=== PATIENT | male | born 1940 | race Caucasian/White ===

== ENCOUNTER 2018-05-29 18:07 | Observation (INO) ==
[2018-05-29 19:18] LABS: Basophils # 0.1 10*3/uL (0.0-0.2); Basophils % 0.8 % (0.0-0.8); Eosinophils # 0.1 10*3/uL (0.0-0.87); Eosinophils % 1.8 % (0.00-10.9); Hematocrit 41.8 VOL% (42.0-52.0); Hemoglobin 14.7 GM/DL (14.0-18.0); Immature Granulocytes % 0.4 %; Immature Granulocytes Absolute 0.03 #; Lymphocytes # 1.5 10*3/uL (1.4-4.0); Lymphocytes % 19.3 % (21.2-54.2); Mean Corpuscular HGB Conc 35.2 GM/DL (32-36); Mean Corpuscular Hemoglobin 32 PG (27-34); Mean Corpuscular Volume 89.7 FL (87-102); Mean Platelet Volume 10.2 FL (9.6-12.0); Monocytes # 0.7 10*3/uL (0.11-0.8); Monocytes % 8.6 % (1.7-12.7); Neutrophils # 5.5 10*3/uL (1.4-7.4); Neutrophils % 69.1 % (38.7-73.9); Platelet Count 244 T/CUMM (130-400); Red Blood Count 4.66 MC/CUMM (3.8-5.5); Red Cell Distribution Width 12.6 % (9.3-17.3); White Blood Count 7.9 T/CUMM (4-12)
[2018-05-29 19:24] LABS: INR 0.9; PT Patient Result 9.6 SECS
[2018-05-29 19:32] LABS: Alanine Aminotransferase 25 U/L (16-61); Albumin 3.7 G/DL (3.4-5.0); Alkaline Phosphatase 85 U/L (45-117); Aspartate Amino Transferase 29 U/L (0-37); Bilirubin,Total < 0.39 MG/DL (0.2-1.0); Blood Urea Nitrogen 15 MG/DL (7-18); Calcium 9.5 MG/DL (8.5-10.1); Glucose 104 MG/DL (74-106); Osmolality,Calculated 277.5 MOS/KG (273-304); Potassium 3.6 MMOL/L (3.5-5.1); Sodium 139 MMOL/L (136-145); Total Protein 7.6 G/DL (6.4-8.3)
[2018-05-29 23:50] LABS: Troponin I Only < 0.015 NG/ML (0.00-0.045)
[2018-05-30 16:05] VITALS: BP 167/74
== END 2018-05-30 18:37 | disposition home or self-care (01) ==
LOC: N.EDINP 18:07 → N.ED 18:07 → N.TELES 22:04
PROVIDERS: ADMIT Internal Medicine; ATTEND Internal Medicine

== ENCOUNTER 2020-09-01 10:37 | Inpatient (IN) ==
[2020-09-01 11:19] LABS: Basophils # 0.1 10*3/uL (0.0-0.2); Basophils % 0.8 % (0.0-0.8); Eosinophils # 0.7 10*3/uL (0.0-0.87); Eosinophils % 8.1 % (0.00-10.9); Hematocrit 42.7 VOL% (42.0-52.0); Hemoglobin 14.2 GM/DL (14.0-18.0); Immature Granulocytes % 2.3 %; Immature Granulocytes Absolute 0.19 #; Lymphocytes # 2.1 10*3/uL (1.4-4.0); Lymphocytes % 24.5 % (21.2-54.2); Mean Corpuscular HGB Conc 33.3 GM/DL (32-36); Mean Corpuscular Volume 93.8 FL (87-102); Mean Platelet Volume 8.5 FL (9.6-12.0); Neutrophils % 50.3 % (38.7-73.9); Platelet Count 514 T/CUMM (130-400); Red Blood Count 4.55 MC/CUMM (3.8-5.5); Red Cell Distribution Width 14.6 % (9.3-17.3); White Blood Count 8.4 T/CUMM (4-12)
[2020-09-01 11:26] LABS: Bilirubin,Urine Negative (Negative); Blood, Urine Negative (Negative); Calcium Oxalate Crystals,Urine Moderate /HPF (Few); Glucose,Urine (UA) Negative (Negative); Hyaline Casts,Urine 7 /LPF (0-3); Ketones,Urine 5 mg/dL (Negative); Mucus,Urine Occasional /LPF (Occasional); Nitrite,Urine Negative (Negative); Protein,Urine 30 MG/DL; RBC,Urine 1 /HPF (0-4); Squamous Epithelial Cell,Urine Occasional /HPF (0-10); Urine Appearance Slightly Hazy (Clear); Urine Color Amber (Yellow); Urine Specific Gravity 1.038 (1.001-1.035); WBC,Urine 1 /HPF (0-6)
[2020-09-01 11:51] LABS: Calcium 8.8 MG/DL (8.5-10.1); Ferritin 194.9 ng/ml (26-388); Osmolality,Calculated 270.2 MOS/KG (273-304)
[2020-09-01] MEDS ORDERED: GLUCAGON 1 MG VIAL IM PRN (16:04)
[2020-09-01] MEDS ORDERED: PROMETHAZINE 25 MG/1 ML VIAL IM PRN (16:04)
[2020-09-01] MEDS ORDERED: ONDANSETRON 4 MG/2 ML VIAL IV PRN (16:04)
[2020-09-01] MEDS ORDERED: DEXTROSE 50% 25 GM/50 ML VIAL IV PRN (16:04)
[2020-09-01] MEDS ORDERED: BISACODYL 5 MG TABLET PO PRN (16:04)
[2020-09-01] MEDS ORDERED: NITROGLYCERIN SL 0.4 MG TABLET SL PRN (16:09)
[2020-09-01] MEDS ORDERED: MELOXICAM 7.5 MG TABLET PO PRN (16:09)
[2020-09-01] MEDS ORDERED: SODIUM CHLORIDE 0.9% 500 ML IV ONE (16:10)
[2020-09-01] MEDS: CEFEPIME 1,000 MG in SODIUM CHLORIDE 0.9% 100 ML IV SCH ×2 (17:07→23:10)
[2020-09-01] MEDS: THEOPHYLLINE ER (24 HR) 400 MG CAPSULE PO SCH (17:08)
[2020-09-01] MEDS: LACTATED RINGERS 1,000 ML IV SCH (17:59)
[2020-09-01] MEDS: VANCOMYCIN INJ 1,250 MG in SODIUM CHLORIDE 0.9% 250 ML IV SCH (18:00)
[2020-09-01] MEDS: ALBUTEROL/IPRATROPIUM 3 ML NEB RESP TX SCH (19:11)
[2020-09-01] MEDS: SOTALOL 80 MG TABLET PO SCH (20:50)
[2020-09-01] MEDS: APIXABAN 2.5 MG TABLET PO SCH (20:50)
[2020-09-01] MEDS: TICAGRELOR 90 MG TABLET PO SCH (20:51)
[2020-09-01] MEDS: ASCORBIC ACID 500 MG TABLET PO SCH (20:52)
[2020-09-01] MEDS: MIRTAZAPINE 15 MG TABLET PO SCH (20:52)
[2020-09-01] MEDS: traZODone 50 MG TABLET PO PRN (20:53)
[2020-09-01] MEDS: SIMVASTATIN 20 MG TABLET PO SCH (20:56)
[2020-09-01] MEDS ORDERED: ZINC SULFATE 220 MG CAPSULE PO SCH (21:00)
[2020-09-02] MEDS: ALBUTEROL/IPRATROPIUM 3 ML NEB RESP TX SCH ×4 (00:20→19:01)
[2020-09-02] MEDS: ACETAMINOPHEN 325 MG TABLET PO PRN ×2 (00:52→11:05)
[2020-09-02 04:09] LABS: Basophils # 0.1 10*3/uL (0.0-0.2)
[2020-09-02 04:22] LABS: Eosinophils # 0.5 10*3/uL (0.0-0.87); Eosinophils % 7.8 % (0.00-10.9); Hematocrit 34.2 VOL% (42.0-52.0); Immature Granulocytes % 1.6 %; Immature Granulocytes Absolute 0.11 #; Lymphocytes # 1.9 10*3/uL (1.4-4.0); Lymphocytes % 28.3 % (21.2-54.2); Mean Corpuscular HGB Conc 33.9 GM/DL (32-36); Mean Corpuscular Volume 92.7 FL (87-102); Monocytes % 14.2 % (1.7-12.7); Neutrophils % 47.1 % (38.7-73.9); Platelet Count 402 T/CUMM (130-400); Red Blood Count 3.69 MC/CUMM (3.8-5.5); Red Cell Distribution Width 14.5 % (9.3-17.3); White Blood Count 6.8 T/CUMM (4-12)
[2020-09-02 04:23] LABS: Hemoglobin 11.6 GM/DL (14.0-18.0)
[2020-09-02 04:36] LABS: Calcium 8.3 MG/DL (8.5-10.1)
[2020-09-02 04:41] LABS: Risk Ratio 3.79; VLDL CHOLESTEROL 12.2 MG/DL
[2020-09-02] MEDS: CEFEPIME 1,000 MG in SODIUM CHLORIDE 0.9% 100 ML IV SCH (05:23)
[2020-09-02] MEDS: LACTATED RINGERS 1,000 ML IV SCH (05:24)
[2020-09-02 05:43] LABS: Eosinophils 9 % (0-10); Hypochromasia 1+; Lymphocytes 23 % (20-55); Microcytosis 1+; Platelet Estimate Adequate; Segmented Neutrophils 57 % (50-85); Total Cells Counted 100
[2020-09-02] MEDS ORDERED: KETOROLAC 30 MG/1 ML VIAL IV ONE (08:56)
[2020-09-02] MEDS ORDERED: AZITHROMYCIN 250 MG TABLET PO ONE (08:57)
[2020-09-02] MEDS: methylPREDNISolone SOD SUC 40 MG/1 ML VIAL IV SCH ×2 (10:25→21:36)
[2020-09-02] MEDS: SOTALOL 80 MG TABLET PO SCH ×2 (10:25→21:34)
[2020-09-02] MEDS: ASPIRIN EC 81 MG TABLET PO SCH (10:26)
[2020-09-02] MEDS: ASCORBIC ACID 500 MG TABLET PO SCH ×2 (10:26→21:34)
[2020-09-02] MEDS: TICAGRELOR 90 MG TABLET PO SCH ×2 (10:26→21:34)
[2020-09-02] MEDS: PANTOPRAZOLE 40 MG TABLET PO SCH (10:27)
[2020-09-02] MEDS: APIXABAN 2.5 MG TABLET PO SCH ×2 (10:27→21:34)
[2020-09-02] MEDS: ZINC SULFATE 220 MG CAPSULE PO SCH (10:27)
[2020-09-02] MEDS: CEFEPIME 2,000 MG in SODIUM CHLORIDE 0.9% 100 ML IV SCH ×2 (13:10→21:35)
[2020-09-02] MEDS: VANCOMYCIN INJ 1,250 MG in SODIUM CHLORIDE 0.9% 250 ML IV SCH (15:05)
[2020-09-02] MEDS: THEOPHYLLINE ER (24 HR) 400 MG CAPSULE PO SCH (17:42)
[2020-09-02] MEDS ORDERED: LOSARTAN 50 MG TABLET PO SCH (21:00)
[2020-09-02] MEDS: MIRTAZAPINE 15 MG TABLET PO SCH (21:34)
[2020-09-02] MEDS: traZODone 50 MG TABLET PO PRN (21:34)
[2020-09-02] MEDS: SIMVASTATIN 20 MG TABLET PO SCH (21:35)
[2020-09-03] MEDS: ALBUTEROL/IPRATROPIUM 3 ML NEB RESP TX SCH ×3 (00:03→14:09)
[2020-09-03] MEDS: CEFEPIME 2,000 MG in SODIUM CHLORIDE 0.9% 100 ML IV SCH ×2 (03:51→12:58)
[2020-09-03] MEDS: methylPREDNISolone SOD SUC 40 MG/1 ML VIAL IV SCH ×2 (04:27→12:58)
[2020-09-03] MEDS: VANCOMYCIN INJ 1,250 MG in SODIUM CHLORIDE 0.9% 250 ML IV SCH (06:09)
[2020-09-03 06:34] LABS: Basophils % 0.3 % (0.0-0.8); Hemoglobin 11.6 GM/DL (14.0-18.0); Immature Granulocytes % 1.6 %; Lymphocytes # 1.1 10*3/uL (1.4-4.0); Lymphocytes % 17.2 % (21.2-54.2); Mean Corpuscular HGB Conc 34.1 GM/DL (32-36); Mean Corpuscular Volume 91.2 FL (87-102); Mean Platelet Volume 9.2 FL (9.6-12.0); Monocytes % 2.5 % (1.7-12.7); Neutrophils % 78.4 % (38.7-73.9); Platelet Count 399 T/CUMM (130-400); Red Blood Count 3.73 MC/CUMM (3.8-5.5); Red Cell Distribution Width 14.2 % (9.3-17.3); White Blood Count 6.3 T/CUMM (4-12)
[2020-09-03 06:44] LABS: Albumin 2.4 G/DL (3.4-5.0); Bilirubin,Total 0.8 MG/DL (0.2-1.0); Calcium 8.5 MG/DL (8.5-10.1); Osmolality,Calculated 284.5 MOS/KG (273-304); Total Protein 6.3 G/DL (6.4-8.3)
[2020-09-03] MEDS ORDERED: AZITHROMYCIN 250 MG TABLET PO SCH (09:00)
[2020-09-03] MEDS: SOTALOL 80 MG TABLET PO SCH (09:07)
[2020-09-03] MEDS: TICAGRELOR 90 MG TABLET PO SCH (09:07)
[2020-09-03] MEDS: PANTOPRAZOLE 40 MG TABLET PO SCH (09:07)
[2020-09-03] MEDS: ASPIRIN EC 81 MG TABLET PO SCH (09:07)
[2020-09-03] MEDS: APIXABAN 2.5 MG TABLET PO SCH (09:07)
[2020-09-03] MEDS: ZINC SULFATE 220 MG CAPSULE PO SCH (09:07)
[2020-09-03] MEDS: ASCORBIC ACID 500 MG TABLET PO SCH (09:07)
[2020-09-03] MEDS ORDERED: KETOROLAC 30 MG/1 ML VIAL IV ONE ×2 (13:01→17:00)
[2020-09-03] MEDS ORDERED: VANCOMYCIN INJ 1,000 MG in SODIUM CHLORIDE 0.9% 250 ML IV ONE (15:00)
[2020-09-03] MEDS ORDERED: LINEZOLID 600 MG TABLET PO ONE (16:30)
[2020-09-03 16:49] VITALS: BP 131/68
[2020-09-03] MEDS ORDERED: methylPREDNISolone SOD SUC 40 MG/1 ML VIAL IV ONE (16:50)
[2020-09-03] MEDS ORDERED: KETOROLAC 15 MG/1 ML VIAL IV ONE (16:50)
== END 2020-09-03 17:13 | disposition home or self-care (01) | DRG 194 ==
LOC: N.RAD 10:37 → N.5E 15:51 → SUATTDRO 15:51
PROVIDERS: ADMIT Nurse Practitioner Family; ATTEND Internal Medicine